=== PATIENT | female | born 1945 | race Caucasian/White ===

== ENCOUNTER 2017-03-24 14:33 | Observation (INO) ==
[2017-03-24] MEDS ORDERED: MAGNESIUM SULF RIDER 2 GM in PREMIX 1 EACH IV PRN (15:10)
[2017-03-24] MEDS ORDERED: ACETAMINOPHEN 325 MG TABLET PO PRN (15:10)
[2017-03-24] MEDS ORDERED: DOCUSATE SODIUM 100 MG CAPSULE PO PRN (15:10)
[2017-03-24] MEDS ORDERED: ZALEPLON 5 MG CAPSULE PO PRN (15:10)
[2017-03-24] MEDS ORDERED: MAGNESIUM SULF RIDER 4 GM in PREMIX 1 EACH IV PRN (15:10)
[2017-03-24 16:55] LABS: Basophils % 0.6 % (0.0-0.8); Eosinophils # 0.3 10*3/uL (0.0-0.87); Eosinophils % 3.7 % (0.00-10.9); Hematocrit 37.3 VOL% (35.7-47.0); Hemoglobin 13.1 GM/DL (12.0-16.0); Immature Granulocytes % 0.1 %; Immature Granulocytes Absolute 0.01 #; Lymphocytes # 1.9 10*3/uL (1.4-4.0); Lymphocytes % 27.6 % (21.3-54.2); Mean Corpuscular HGB Conc 35.1 GM/DL (32-36); Mean Corpuscular Hemoglobin 31 PG (27-34); Mean Corpuscular Volume 88.2 FL (87-102); Mean Platelet Volume 9.6 FL (9.6-12.0); Monocytes # 0.5 10*3/uL (0.11-0.8); Neutrophils # 4.1 10*3/uL (1.4-7.4); Platelet Count 219 T/CUMM (130-400); Red Blood Count 4.23 MC/CUMM (3.8-5.5); Red Cell Distribution Width 12.7 % (9.3-17.3); White Blood Count 6.7 T/CUMM (4-12)
[2017-03-24] MEDS ORDERED: ceFAZolin 1,000 MG VIAL IRRIG ONE (17:28)
[2017-03-24] MEDS ORDERED: NITROGLYCERIN SL 0.4 MG TABLET SL PRN (17:30)
[2017-03-24 17:40] LABS: Calcium 9.3 MG/DL (8.5-10.1); Magnesium 2.3 MG/DL (1.8-2.4); Osmolality,Calculated 285.1 MOS/KG (273-304); Thyroid Stimulating Hormone 2.89 uIU/ml (0.358-3.74)
[2017-03-24 18:04] LABS: Apearance,Urine CLOUDY (Clear); Bacteria,Urine Occasional /HPF (Few); Bilirubin,Urine Negative (Negative); Blood, Urine Negative (Negative); Glucose,Urine (UA) Negative (Negative); Ketones,Urine Negative (Negative); Mucus,Urine Occasional /LPF (Occasional); Nitrite,Urine Positive (Negative); Protein,Urine Negative; RBC,Urine 1 /HPF (0-4); Squamous Epithelial Cell,Urine Occasional /HPF (0-10); Urine Color Yellow (Yellow); Urine Specific Gravity 1.005 (1.001-1.035); Urine Urobilinogen < 2.0 EU/DL (0.2-1.0); WBC,Urine 23 /HPF (0-6)
[2017-03-24] MEDS: BACLOFEN 20 MG TABLET PO SCH (20:34)
[2017-03-25 05:20] LABS: Basophils # 0.1 10*3/uL (0.0-0.2); Basophils % 0.8 % (0.0-0.8); Eosinophils # 0.4 10*3/uL (0.0-0.87); Eosinophils % 5.5 % (0.00-10.9); Hematocrit 35.6 VOL% (35.7-47.0); Hemoglobin 12.5 GM/DL (12.0-16.0); Immature Granulocytes % 0.3 %; Immature Granulocytes Absolute 0.02 #; Lymphocytes # 1.9 10*3/uL (1.4-4.0); Lymphocytes % 29.5 % (21.3-54.2); Mean Corpuscular HGB Conc 35.1 GM/DL (32-36); Mean Corpuscular Hemoglobin 31 PG (27-34); Mean Corpuscular Volume 86.8 FL (87-102); Mean Platelet Volume 9.6 FL (9.6-12.0); Monocytes # 0.6 10*3/uL (0.11-0.8); Monocytes % 8.9 % (1.7-12.7); Neutrophils # 3.6 10*3/uL (1.4-7.4); Platelet Count 192 T/CUMM (130-400); Red Cell Distribution Width 12.5 % (9.3-17.3); White Blood Count 6.5 T/CUMM (4-12)
[2017-03-25 05:26] LABS: PT Patient Result 10.2 SECS; Partial Thromboplastin Time 25.8 SECS (0-40)
[2017-03-25 05:55] LABS: Calcium 8.9 MG/DL (8.5-10.1); Magnesium 2.3 MG/DL (1.8-2.4); Osmolality,Calculated 284.1 MOS/KG (273-304); Potassium 4.1 MMOL/L (3.5-5.1)
[2017-03-25 06:04] LABS: Risk Ratio 2.8; VLDL CHOLESTEROL 22.8 MG/DL
[2017-03-25] MEDS ORDERED: ceFAZolin 1,000 MG VIAL IRRIG ONE (08:00)
[2017-03-25] MEDS ORDERED: NON-FORMULARY MEDICATION (Zolpidem Tartrate [Ambien] 10 MG) PO SCH (09:00)
[2017-03-25] MEDS: METOPROLOL SUCCINATE XL 50 MG TABLET PO SCH (13:31)
[2017-03-25] MEDS: ASPIRIN EC 81 MG TABLET PO SCH (13:31)
[2017-03-25] MEDS: BACLOFEN 20 MG TABLET PO SCH ×3 (13:42→20:35)
[2017-03-25] MEDS: MULTIVITAMIN (CENTRUM) TABLET PO SCH (13:42)
[2017-03-25] MEDS: Glatiramer Acetate [Copaxone] 20 MG SQ SCH (13:42)
[2017-03-25] MEDS: ROSUVASTATIN 20 MG TABLET PO SCH (13:42)
[2017-03-25] MEDS: Modafinil [Provigil] 200 MG PO SCH (13:43)
[2017-03-25] MEDS: SOLIFENACIN 5 MG TABLET PO SCH (13:43)
[2017-03-25] MEDS ORDERED: MIDAZOLAM 2 MG/2 ML VIAL ONE (16:35)
[2017-03-25] MEDS ORDERED: fentaNYL 100 MCG/2 ML VIAL ONE (16:35)
[2017-03-25] MEDS ORDERED: ceFAZolin 1,000 MG VIAL ONE (16:35)
[2017-03-25] MEDS ORDERED: HEPARIN/NACL 0.9% 2 UNITS/ML 500 ML IV ONE (17:27)
[2017-03-25] MEDS ORDERED: LIDOCAINE 1% 20 ML VIAL ONE ×2 (17:27→17:46)
[2017-03-25] MEDS ORDERED: TISSUE ADHESIVE 1 EACH APPLICATOR TOP ONE ×2 (17:27→17:37)
[2017-03-25] MEDS ORDERED: oxyCODONE/ACETAMINOPHEN 5-325 MG TABLET PO PRN (17:57)
[2017-03-25] MEDS ORDERED: ONDANSETRON 4 MG/2 ML VIAL IV PRN (18:40)
[2017-03-26 04:39] LABS: Basophils % 0.2 % (0.0-0.8); Eosinophils # 0.2 10*3/uL (0.0-0.87); Eosinophils % 2.2 % (0.00-10.9); Hematocrit 36.4 VOL% (35.7-47.0); Hemoglobin 12.7 GM/DL (12.0-16.0); Immature Granulocytes % 0.4 %; Immature Granulocytes Absolute 0.03 #; Lymphocytes # 1.9 10*3/uL (1.4-4.0); Lymphocytes % 22.4 % (21.3-54.2); Mean Corpuscular HGB Conc 34.9 GM/DL (32-36); Mean Corpuscular Hemoglobin 31 PG (27-34); Mean Corpuscular Volume 87.3 FL (87-102); Mean Platelet Volume 10.1 FL (9.6-12.0); Monocytes # 0.5 10*3/uL (0.11-0.8); Monocytes % 5.7 % (1.7-12.7); Neutrophils # 5.7 10*3/uL (1.4-7.4); Neutrophils % 69.1 % (38.7-73.9); Platelet Count 203 T/CUMM (130-400); Red Blood Count 4.17 MC/CUMM (3.8-5.5); Red Cell Distribution Width 12.7 % (9.3-17.3); White Blood Count 8.3 T/CUMM (4-12)
[2017-03-26 05:13] LABS: Calcium 8.7 MG/DL (8.5-10.1); Magnesium 2.4 MG/DL (1.8-2.4); Osmolality,Calculated 279.4 MOS/KG (273-304); Potassium 3.8 MMOL/L (3.5-5.1)
[2017-03-26] MEDS: Glatiramer Acetate [Copaxone] 20 MG SQ SCH (08:22)
[2017-03-26] MEDS: Modafinil [Provigil] 200 MG PO SCH (08:23)
[2017-03-26] MEDS: SOLIFENACIN 5 MG TABLET PO SCH (08:23)
[2017-03-26] MEDS: ASPIRIN EC 81 MG TABLET PO SCH (08:24)
[2017-03-26] MEDS: METOPROLOL SUCCINATE XL 50 MG TABLET PO SCH (08:24)
[2017-03-26] MEDS: MULTIVITAMIN (CENTRUM) TABLET PO SCH (08:24)
[2017-03-26] MEDS: BACLOFEN 20 MG TABLET PO SCH (08:24)
[2017-03-26] MEDS: ROSUVASTATIN 20 MG TABLET PO SCH (08:24)
[2017-03-26] MEDS ORDERED: LEVOFLOXACIN 250 MG TABLET PO SCH (10:30)
[2017-03-26 11:36] VITALS: BP 139/70
[2017-03-26] MEDS ORDERED: INFLUENZA VIRUS VACCINE 0.5 ML SYRINGE IM ONE (14:30)
[2017-03-26] MEDS ORDERED: PNEUMOCOCCAL VACCINE (23 VALENT) 0.5 ML VIAL IM ONE (14:30)
[2017-03-31] MEDS ORDERED: Alendronate Sodium [Fosamax] 70 MG PO SCH (09:00)
== END 2017-03-26 14:20 | disposition home or self-care (01) ==
LOC: N.TELEN → INTOOBSV 15:09 → OBSVTOIN 15:09
PROVIDERS: ADMIT Internal Medicine Interventional Cardiology; ATTEND Internal Medicine Interventional Cardiology